=== PATIENT | male | born 1955 | race Caucasian/White ===

== ENCOUNTER 2016-08-25 23:13 | Observation (INO) | payer MEDICARE, OTHER ==
[~2016-08-25] VITALS: Ht 182.9 cm; Wt 98.0 kg
[~2016-08-25 23:13] MED LIST: PENI500T PO; Z.0.NO CURRENT MEDS
[2016-08-25 23:29] VITALS: BP 111/64; PULSE 51; RESP 18; TEMP 98.6; O2SAT 96
[2016-08-25 23:38] VITALS: RESP 18; O2SAT 96
[2016-08-25] MEDS ORDERED: SODIUM CHLORIDE 0.9% FLUSH 5 ML FLUSH IVF PRN (23:45)
[2016-08-25 23:55] LABS: AUTOMATED NEUTROPHIL # 3.9 TH/MM3 (1.8-7.7); BASOPHIL % 0.6 % (0.0-2.0); EOSINOPHIL # 0.1 TH/MM3 (0-0.4); EOSINOPHIL % 1.4 % (0.0-4.0); HEMO FLAGS DIFF FINAL; LYMPH % 29.7 % (9.0-44.0); MEAN CELL VOLUME 90.9 FL (80.0-100.0); MEAN CORPUSCULAR HEMOGLOBIN 31.4 PG (27.0-34.0); MEAN CORPUSCULAR HGB CONC 34.6 % (32.0-36.0); MONO % 10.3 % (0.0-8.0); PLATELET COUNT 208 TH/MM3 (150-450); RED BLOOD COUNT 5.06 MIL/MM3 (4.50-5.90); WHITE BLOOD COUNT 6.8 TH/MM3 (4.0-11.0)
[2016-08-26 00:08] LABS: APTT (PATIENT) 26.6 SEC (24.3-30.1); PROTHROMBIN TIME - PATIENT 10.9 SEC (9.8-11.6)
--- NOTE | 2016-08-26 00:17 | PD ---
HPI Chief Complaint: Chest Pain Time Seen by Provider: 23:36 Travel History International Travel<30 days: No Contact w/Intl Traveler<30days: No Traveled to known affect area: No History of Present Illness HPI 60-year-old male presents to the emergency department by EMS [place] he was noted in the parking lot by bystanders to complain of chest pain. Patient with history of bradycardia. Patient denies previous history of coronary vessel disease. Patient is been seen by core extruder and told that he may need a pacemaker. Patient admits to drinking alcohol heavily today. Patient received sublingual nitroglycerin times one and low-dose aspirin by EMS and patient denies any chest pain at this time. No report upper neck pain shortness of breath sweats nausea vomiting referred neck jaw back shoulder or abdominal pain. Patient unable to identify exacerbating or alleviating factors other than symptoms did improve after EMS administered nitroglycerin. Patient is not taking any erectile dysfunction medications. Patient admits to history of dyslipidemia but denies history of hypertension or tobacco use. Patient does drink alcohol frequently and continues to smoke cigarettes. Currently pain is 0/10 in intensity. PFSH Past Medical History Narrative Medical Bradycardia, prostate cancer, dyslipidemia, tobacco use, alcohol use; nursing notes reviewed Medical History: Unable to Obtain Cancer: Yes (PROSTATE AND LYMPH NODES) Past Surgical History Surgical History: Unable to Obtain Social History Alcohol Use: Yes Tobacco Use: Yes Substance Use: No Allergies-Medications (Allergen,Severity, Reaction): Coded Allergies: No Known Allergies (Unverified , 08/25/16) Reported Meds & Prescriptions Reported Meds & Active Scripts Active Pravachol (Pravastatin) 40 Mg Tab 40 Mg PO DAILY Aspirin EC (Aspirin) 81 Mg Tabdr 81 Mg PO DAILY Review of Systems Except as stated in HPI: all other systems reviewed are Neg General / Constitutional: No: Fever, Chills Eyes: No: Visual changes HENT: No: Headaches Cardiovascular: Positive: Chest Pain or Discomfort, No: Edema Respiratory: No: Shortness of Breath Gastrointestinal: No: Nausea, Vomiting, Abdominal Pain Genitourinary: No: Flank Pain Musculoskeletal: No: Edema, Pain Skin: No Rash Neurologic: Positive: Weakness, No: Dizziness, Syncope, Focal Abnormalities, Coordination Problem Psychiatric: Positive: Anxiety Hematologic/Lymphatic: No: Lymph Node Enlargement Physical Exam Narrative GENERAL: Well-developed well-nourished male in no acute distress no respiratory distress; GCS 15 SKIN: Warm and dry. HEAD: Normocephalic. EYES: No scleral icterus. No injection or drainage. NECK: Supple, trachea midline. No JVD or lymphadenopathy. CARDIOVASCULAR: Regular rate and rhythm without murmurs, gallops, or rubs. RESPIRATORY: Breath sounds equal bilaterally. No accessory muscle use. GASTROINTESTINAL: Abdomen soft, non-tender, nondistended. MUSCULOSKELETAL: No cyanosis, or edema. Bilateral radial and dorsalis pedis pulses 2+ to palpation BACK: Nontender without obvious deformity. No CVA tenderness. Data Data Last Documented VS Vital Signs Date Time Temp Pulse Resp B/P Pulse Ox O2 Delivery O2 Flow Rate FiO2 08/26/16 00:43 96 3 08/26/16 00:42 47 18 130/75 Nasal Cannula 08/25/16 23:29 98.6 Orders Electrocardiogram (08/25/16 23:36) Basic Metabolic Panel (Bmp) (08/25/16 23:36) Ckmb (Isoenzyme) Profile (08/25/16 23:36) Complete Blood Count With Diff (08/25/16 23:36) Magnesium (Mg) (08/25/16 23:36) Prothrombin Time / Inr (Pt) (08/25/16 23:36) Act Partial Throm Time (Ptt) (08/25/16 23:36) Troponin I (08/25/16 23:36) Chest, Single Ap (08/25/16 23:36) Ecg Monitoring (08/25/16 23:36) Bilateral Bp Monitoring (08/25/16 23:36) Iv Access Insert/Monitor (08/25/16 23:36) Oximetry (08/25/16 23:36) Oxygen Administration (08/25/16 23:36) Sodium Chloride 0.9% Flush (Ns Flush) (08/25/16 23:45) Alcohol (Ethanol) (08/25/16 23:36) CKMB (08/25/16 23:45) CKMB% (08/25/16 23:45) Admit Order (Ed Use Only) (08/26/16 ) ^ Saline Lock (08/26/16 01:05) Resp Oxygen Aguilar C Titrat 1-4 L (08/26/16 ) ^ Notify Dr: Other (08/26/16 01:05) Sodium Chloride 0.9% Flush (Ns Flush) (08/26/16 09:00) Sodium Chloride 0.9% Flush (Ns Flush) (08/26/16 01:15) Labs Laboratory Tests Test 08/25/16 23:45 White Blood Count 6.8 TH/MM3 Red Blood Count 5.06 MIL/MM3 Hemoglobin 15.9 GM/DL Hematocrit 46.0 % Mean Corpuscular Volume 90.9 FL Mean Corpuscular Hemoglobin 31.4 PG Mean Corpuscular Hemoglobin 34.6 % Concent Red Cell Distribution Width 14.0 % Platelet Count 208 TH/MM3 Mean Platelet Volume 9.3 FL Neutrophils (%) (Auto) 58.0 % Lymphocytes (%) (Auto) 29.7 % Monocytes (%) (Auto) 10.3 % Eosinophils (%) (Auto) 1.4 % Basophils (%) (Auto) 0.6 % Neutrophils # (Auto) 3.9 TH/MM3 Lymphocytes # (Auto) 2.0 TH/MM3 Monocytes # (Auto) 0.7 TH/MM3 Eosinophils # (Auto) 0.1 TH/MM3 Basophils # (Auto) 0.0 TH/MM3 CBC Comment DIFF FINAL Differential Comment Prothrombin Time 10.9 SEC Prothromb Time International 1.0 RATIO Ratio Activated Partial 26.6 SEC Thromboplast Time Sodium Level 139 MEQ/L Potassium Level 3.8 MEQ/L Chloride Level 104 MEQ/L Carbon Dioxide Level 21.7 MEQ/L Anion Gap 13 MEQ/L Blood Urea Nitrogen 8 MG/DL Creatinine 0.86 MG/DL Estimat Glomerular Filtration 91 ML/MIN Rate Random Glucose 103 MG/DL Calcium Level 8.3 MG/DL Magnesium Level 2.0 MG/DL Total Creatine Kinase 204 U/L Creatine Kinase MB 1.6 NG/ML Troponin I LESS THAN 0.02 NG/ML Ethyl Alcohol Level 303 MG/DL [facility] Medical Decision Making Medical Screen Exam Complete: Yes Emergency Medical Condition: Yes Medical Record Reviewed: Yes Interpretation(s) EKG sinus bradycardia no acute ST elevation or injury pattern change noted Last Impressions Chest X-Ray 08/25/16 5753 Signed Impressions: Service Date/Time: Friday, August 26, 2016 00:06 - CONCLUSION: Minimal linear scarring versus atelectasis left lung base. Anthony Camarena MD CBC & BMP Diagram 2/24/17 23:45 Vital Signs Date Time Temp Pulse Resp B/P Pulse Ox O2 Delivery O2 Flow Rate FiO2 08/26/16 00:43 96 3 08/26/16 00:42 47 18 130/75 96 Nasal Cannula 3 08/25/16 23:38 18 96 Nasal Cannula 2 08/25/16 23:35 50 18 96 Room Air 08/25/16 23:29 98.6 51 18 111/64 96 Differential Diagnosis Chest pain, ACS, myocardial infarction, arrhythmia, electronic disturbance, alcohol intoxication Narrative Course Patient placed on monitoring manager identified to be bradycardic with out any acute ST elevation or injury pattern change right EKG patient is presently asymptomatic with no chest pain. Patient has received aspirin. Lab values pending patient resting comfortably consistent with history of heavy alcohol ingestion but readily arousable to voice and cooperative to questioning patient continues to deny any chest pain. Serum alcohol identified to be elevated at 303 Patient's case discussed with [facility] physician for admission Physician Communication Physician Communication discussed with Dr Sanchez --obs to CDU Diagnosis Primary Impression: Chest pain Qualified Code: R07.2 - Precordial pain Additional Impressions: Bradycardia Alcohol intoxication Qualified Code: F10.120 - Alcohol intoxication, uncomplicated Admitting Information Admitting Physician Requests: Observation Scripts Pravastatin (Pravachol)40 Mg Tab40 Mg PO DAILY #30 TAB Prov:Brandy Long PA-C 08/26/[address] (Aspirin EC)81 Mg Tabdr81 Mg PO DAILY #30 TAB Prov:Brandy Long PA-C 08/26/16 Jeanne Cassidy MD Aug 26, 2016 00:17
[2016-08-26 00:19] LABS: ANION GAP 13 MEQ/L (5-15)
[2016-08-26 00:24] LABS: BICARBONATE 21.7 MEQ/L (21.0-32.0); BLOOD UREA NITROGEN 8 MG/DL (7-18); CHLORIDE 104 MEQ/L (98-107); CREATINE KINASE 204 U/L (39-308); GLOMERULAR FILTRATION RATE 91 ML/MIN (>89); POTASSIUM 3.8 MEQ/L (3.5-5.1); SODIUM (NA) 139 MEQ/L (136-145)
[2016-08-26 00:38] LABS: CKMB 1.6 NG/ML (0.5-3.6)
--- NOTE | 2016-08-26 00:41 | RADRPT ---
EXAM DATE/TIME: 08/26/2016 00:06 [facility] COMPARISON: No previous studies available for comparison. INDICATIONS : Shortness of breath. MEDICAL HISTORY : None. SURGICAL HISTORY : None. ENCOUNTER: Initial ACUITY: 1 day PAIN SCORE: 0/10 LOCATION: Bilateral chest FINDINGS: Cardiomegaly. Left basilar scarring versus atelectasis. No consolidation or effusion. Osseous structu res are intact. CONCLUSION: Minimal linear scarring versus atelectasis left lung base. Anthony Camarena MD on August 26, 2016 at 0:39 Board Certified Radiologist. This report was verified electronically.
[2016-08-26 00:42] VITALS: BP 130/75; PULSE 47; RESP 18; O2SAT 96
[2016-08-26] MEDS ORDERED: SODIUM CHLORIDE 0.9% FLUSH 5 ML FLUSH IVF PRN (01:15)
[2016-08-26 01:16] VITALS: O2SAT 96
[2016-08-26] MEDS ORDERED: FLUMAZENIL 0.5 MG/5 ML VIAL IV PUSH PRN (01:30)
[2016-08-26] MEDS ORDERED: LORazepam 2 MG/ML VIAL IV PUSH PRN ×4 (01:30)
[2016-08-26] MEDS ORDERED: ACETAMINOPHEN 325 MG TAB PO PRN (01:30)
[2016-08-26] MEDS ORDERED: ACETAMINOPHEN/HYDROcodone 325 MG/5 MG TAB PO PRN (01:30)
[2016-08-26] MEDS ORDERED: LORazepam 1 MG TAB PO PRN (01:30)
[2016-08-26] MEDS ORDERED: LORazepam 2 MG TAB PO PRN (01:30)
[2016-08-26] MEDS ORDERED: SODIUM CHLORIDE 0.9% FLUSH 5 ML FLUSH FLUSH PRN (01:30)
[2016-08-26] MEDS ORDERED: ONDANSETRON HCL 4 MG/2 ML VIAL IVP PRN (01:30)
[2016-08-26] MEDS ORDERED: HALOPERIDOL LACTATE 5 MG/ML AMP IM PRN (01:30)
[2016-08-26] MEDS ORDERED: MORPHINE SULFATE 4 MG/ML INJ IV PRN (01:30)
[2016-08-26] MEDS ORDERED: BISACODYL 10 MG SUPP PR PRN (01:30)
[2016-08-26] MEDS ORDERED: MULTIVITAMIN INJ 10 ML, FOLIC ACID INJ 1 MG in SODIUM CHLORID 0.9% 500 ML INJ 500 ML IV SCH (02:00)
[2016-08-26] MEDS ORDERED: THIAMINE INJ 100 MG in SODIUM CHLORIDE 0.9% INJ 100 ML IV SCH (02:00)
--- NOTE | 2016-08-26 02:17 | HHI.HP ---
[facility] Service [facility] Primary Care Physician Unknown Admission Diagnosis chest pain; bradycardia; alcohol intoxication Diagnoses: (1) Chest pain Diagnosis: Principal (2) Bradycardia Diagnosis: Principal (3) Alcohol intoxication Diagnosis: Principal Travel History International Travel<30 Days: No Contact w/Intl Traveler <30 Da: No Traveled to Known Affected Are: No History of Present Illness This is a 60-year-old male with PMH of Alcohol and Tobacco Use who was brought to the ER secondary to complaints of SOB and chest pain while at the races. Noted by bystander to be diaphoretic and EMS called. Pt acutely intoxicated on arrival and minimally cooperative with exam/questions, Alcohol 303. Denies any complaints at this time, states chest pain resolved. Notes h/o stress test in January 2016 which was reportedly normal. On arrival, BP 111/64, HR 51, O2 sat 96% on RA, Afebrile. Reports h/o bradycardia w/ mention of Pacemaker placement , however no plan per pt. Review of Systems ROS: 14 point review of systems otherwise negative. Past Family Social History Past Medical History PMH: Alcohol and Tobacco Use Past Surgical History PAST SURGICAL HISTORY: Unknown Allergies: Coded Allergies: No Known Allergies (Unverified , 08/25/16) Family History PAST FAMILY HISTORY: Reviewed. No h/o DM or CAD Social History PAST SOCIAL HISTORY: Positive for alcohol and tobacco use, unable to quantify. Reportedly negative for drugs. Physical Exam Vital Signs Vital Signs Date Time Temp Pulse Resp B/P Pulse Ox O2 Delivery O2 Flow Rate FiO2 08/26/16 01:16 96 Nasal Cannula 3.00 08/26/16 00:43 96 3 08/26/16 00:42 47 18 130/75 96 Nasal Cannula 3 08/25/16 23:38 18 96 Nasal Cannula 2 08/25/16 23:35 50 18 96 Room Air 08/25/16 23:29 98.6 51 18 111/64 96 Physical Exam PE: GENERAL: Middle-aged male in no acute distress, intoxicated, minimally cooperative w/ exams, answers few questions. HEENT: PERRLA, EOMI. No scleral icterus or conjunctival pallor. No lid lag or facial droop. CARDIOVASCULAR: Regular rate and rhythm. No obvious murmurs to auscultation. No chest tenderness to palpation. RESPIRATORY: No obvious rhonchi or wheezing. Clear to auscultation. Breath sounds equal bilaterally. GASTROINTESTINAL: Abdomen soft, non-tender, nondistended. BS normal. MUSCULOSKELETAL: Extremities without clubbing, cyanosis, or edema. No obvious deformities. NEUROLOGICAL: Intoxicated, sleeping, rouses easily but minimally cooperative. No focal neurologic deficits. Moving both upper and lower extremities spontaneously. Laboratory Laboratory Tests Test 08/25/16 23:45 White Blood Count 6.8 Red Blood Count 5.06 Hemoglobin 15.9 Hematocrit 46.0 Mean Corpuscular Volume 90.9 Mean Corpuscular Hemoglobin 31.4 Mean Corpuscular Hemoglobin 34.6 Concent Red Cell Distribution Width 14.0 Platelet Count 208 Mean Platelet Volume 9.3 Neutrophils (%) (Auto) 58.0 Lymphocytes (%) (Auto) 29.7 Monocytes (%) (Auto) 10.3 Eosinophils (%) (Auto) 1.4 Basophils (%) (Auto) 0.6 Neutrophils # (Auto) 3.9 Lymphocytes # (Auto) 2.0 Monocytes # (Auto) 0.7 Eosinophils # (Auto) 0.1 Basophils # (Auto) 0.0 CBC Comment DIFF FINAL Differential Comment Prothrombin Time 10.9 Prothromb Time International 1.0 Ratio Activated Partial 26.6 Thromboplast Time Sodium Level 139 Potassium Level 3.8 Chloride Level 104 Carbon Dioxide Level 21.7 Anion Gap 13 Blood Urea Nitrogen 8 Creatinine 0.86 Estimat Glomerular Filtration 91 Rate Random Glucose 103 Calcium Level 8.3 Magnesium Level 2.0 Total Creatine Kinase 204 Creatine Kinase MB 1.6 Troponin I LESS THAN 0.02 Ethyl Alcohol Level 303 Result Diagram: 08/25/16 2345 08/25/16 2345 Assessment and Plan Problem List: (1) Chest pain ICD Code: R07.9 Status: Acute (2) Bradycardia ICD Code: R00.1 Status: Acute (3) Alcohol intoxication ICD Code: F10.129 Status: Acute Assessment and Plan A/P: 1. Chest Pain: c/o acute onset of chest pain/SOB while at the races, noted by bystander to be diaphoretic, currently chest pain free. Initial trop negative, EKG w/ no acute changes. Per pt, Stress Test 01/2016 normal, no records available. Admit to Observation, telemetry, check serial cardiac enzymes. No B -sofya in light of bradycardia. Start Statin, check lipid profile, TSH. 2. Bradycardia: HR 40-50's while in ER, seemingly asymptomatic. Reports h/o same in the past w/ mention of Pacemaker Placement, however no plan at this time. Will monitor. Check Echo. 3. Alcohol Intoxication: Drinking heavily all day while at the races. Alcohol 309. Seizure Precautions, CIWA, MVT/Thiamine/Folate replacement. 4. DVT Prophylaxis: SCD/Teds. 5. Social work for d/c planning as needed. 6. Case discussed w/ ER physician at length. Problem Qualifiers (1) Chest pain: Qualified Code: R07.2 - Precordial pain (2) Alcohol intoxication: Qualified Code: F10.120 - Alcohol intoxication, uncomplicated Donna Sanchez MD Aug 26, 2016 02:17
[2016-08-26 06:23] VITALS: BP 136/76; PULSE 46; RESP 14; TEMP 97.6
[2016-08-26 07:20] LABS: HDL CHOLESTEROL 85.8 MG/DL (40.0-60.0); LDL CHOLESTEROL 109 MG/DL (0-99)
[2016-08-26 07:46] VITALS: BP 107/59; PULSE 50; RESP 14; TEMP 98; O2SAT 95
[2016-08-26 08:00] VITALS: PULSE 47
[2016-08-26] MEDS ORDERED: SODIUM CHLORIDE 0.9% FLUSH 5 ML FLUSH IVF SCH (09:00)
[2016-08-26] MEDS ORDERED: PRAVASTATIN SOD 40 MG TAB PO SCH (09:00)
[2016-08-26] MEDS ORDERED: SODIUM CHLORIDE 0.9% FLUSH 5 ML FLUSH FLUSH SCH (09:00)
--- NOTE | 2016-08-26 09:13 | HHI.PR ---
Subjective Remarks Follow-up for chest pain. The patient is sleeping upon my arrival, drowsy, but does awaken to voice. Keeps eyes closed throughout conversation initially. The patient reports yesterday after drinking multiple beers he developed heavy chest pressure, felt like someone was sitting on his chest, patient has difficulty recalling more detail as he was intoxicated at the time. He states they gave him 2 tablets then the pain completely went away. This morning he still has some dull pains in the center of his chest, he states it's worse with just me talking to him about it, and says it's probably because he's anxious and stressed. He does not have his cell phone. [place], with 6 other people who have no clue where he is at. He is trying to get ahold of his back home. The patient reports history of walking treadmill stress test last year around January 2016 which was reportedly unremarkable. The patient is a smoker. He has no other cardiac history. He has never had a nuclear stress test. Objective Vitals Vital Signs Date Time Temp Pulse Resp B/P Pulse Ox O2 Delivery O2 Flow Rate FiO2 08/26/16 07:46 98.0 50 14 107/59 95 08/26/16 06:23 97.6 46 14 136/76 08/26/16 01:16 96 Nasal Cannula 3.00 08/26/16 00:43 96 3 08/26/16 00:42 47 18 130/75 96 Nasal Cannula 3 08/25/16 23:38 18 96 Nasal Cannula 2 08/25/16 23:35 50 18 96 Room Air 08/25/16 23:29 98.6 51 18 111/64 96 Result Diagram: 08/25/16 2345 08/25/16 2345 Imaging Last Impressions Chest X-Ray 08/25/16 2336 Signed Impressions: Service Date/Time: Friday, August 26, 2016 00:06 - CONCLUSION: Minimal linear scarring versus atelectasis left lung base. Anthony Camarena MD Objective Remarks GENERAL: Well-nourished, well-developed milddle aged male patient in [facility]. SKIN: Warm and dry. No rash. Sunburned skin. HEAD: Normocephalic. Atraumatic. EYES: Pupils equal and round. No scleral icterus. No injection or drainage. ENT: No nasal bleeding or discharge. Mucous membranes pink and moist. NECK: Supple. Trachea midline. CARDIOVASCULAR: Regular rate and rhythm. S1, S2 noted. No murmur appreciated. RESPIRATORY: No accessory muscle use. Clear to auscultation. Breath sounds equal bilaterally. GASTROINTESTINAL: Abdomen soft, non-tender, nondistended. Normoactive bowel sounds x4. MUSCULOSKELETAL: No obvious deformities. Extremities without clubbing, cyanosis , or edema. NEUROLOGICAL: Awake and alert. No obvious cranial nerve deficits. Motor grossly within normal limits. Normal speech. PSYCHIATRIC: Anxious mood; insight and judgment normal. Medications and IVs Current Medications Medications (Trade) Dose Ordered Sig/Nereida Route Start Time Stop Time Status Last Admin (NS Flush) 2 ml BID IVF 08/26/16 09:00 IV Flush 2 ml 2 ml UNSCH PRN IVF 08/26/16 01:15 Multivitamins 10 ml/Folic Acid 1 mg/Sodium Chloride 510.2 ml @ 125 mls/hr Q24H IV 08/26/16 02:00 08/31/16 01:59 08/26/16 02:27 (Thiamine Inj/NS Inj) 101 ml @ 100 mls/hr Q24H IV 08/26/16 02:00 08/29/16 01:59 08/26/16 02:27 (Vitamin B1) 100 mg DAILY PO 08/29/16 09:00 (Romazicon Inj) 0.2 mg Q1M PRN IV PUSH 08/26/16 01:30 (Ativan) 1 mg Q4H PRN PO 08/26/16 01:30 (Ativan Inj) 1 mg Q4H PRN IV PUSH 08/26/16 01:30 (Ativan) 2 mg Q2H PRN PO 08/26/16 01:30 (Ativan Inj) 2 mg Q2H PRN IV PUSH 08/26/16 01:30 (Ativan Inj) 2 mg Q1H PRN IV PUSH 08/26/16 01:30 (Ativan Inj) 2 mg Q15M PRN IV PUSH 08/26/16 01:30 (Haldol Inj) 2 mg Q15M PRN IM 08/26/16 01:30 (NS Flush) 2 ml UNSCH PRN FLUSH 08/26/16 01:30 (NS Flush) 2 ml BID FLUSH 08/26/16 09:00 08/26/16 08:05 (Zofran Inj) 4 mg Q6H PRN IVP 08/26/16 01:30 (Dulcolax Supp) 10 mg DAILY PRN OH 08/26/16 01:30 (Tylenol) 650 mg Q6H PRN PO 08/26/16 01:30 ([place] 5-325 Mg) 1 tab Q4H PRN PO 08/26/16 01:30 (Morphine Inj) 2 mg Q3H PRN IV 08/26/16 01:30 (Pravachol) 40 mg DAILY PO 08/26/16 09:00 08/26/16 08:05 A/P Problem List: (1) Chest pain ICD Code: R07.9 Status: Acute (2) Bradycardia ICD Code: R00.1 Status: Acute (3) Alcohol intoxication ICD Code: F10.129 Status: Acute Assessment and Plan 60-year-old male with PMH of Alcohol and Tobacco Use who was brought to the ER secondary to complaints of SOB and chest pain while at the races. Chest Pain: c/o acute onset of chest pain/SOB while at the races, noted by bystander to be diaphoretic, currently chest pain free. Troponins negative x2, EKG w/ no acute changes. Per pt, Treadmill Stress Test 01/2016 normal, no records available. Monitor on telemetry. No B-sofya in light of bradycardia. Start Aspirin and Statin, lipid profile with elevated cholesterol and LDL. TSH wnl. Check nuclear stress test today, if negative, will discharge home. Bradycardia: HR 40-50's while in ER, asymptomatic. Reports h/o same in the past w/ mention of Pacemaker Placement, however no plan at this time. Will monitor. Observed telemetry while patient ambulating, HR increased to 60-70s appropriately. Outpatient f/up. Alcohol Intoxication: Drinking heavily all day while at the races. Alcohol 309. Seizure Precautions, CIWA, MVT/Thiamine/Folate replacement. DVT Prophylaxis: SCD/Teds. Discussed with Dr. Santiago. Discharge Planning Nuclear stress test was unremarkable. Will discharge home. Discussed with Dr. Santiago. Discharge patient to home Condition on discharge: Improved Heart healthy Diet as tolerated Ad Danuta activity Rx written: Aspirin 81 mg daily, Pravachol 40 mg daily Follow-up with primary care physician within one week Attending Statement The exam, history, and the medical decision-making described in the above note were completed with the assistance of the mid-level provider. I reviewed and agree with the findings presented. I attest that I had a [id number] encounter with the patient on the same day, and personally performed and documented my assessment and findings in the medical record. Problem Qualifiers (1) Chest pain: Qualified Code: R07.2 - Precordial pain (2) Alcohol intoxication: Qualified Code: F10.120 - Alcohol intoxication, uncomplicated Brandy Long PA-C Aug 26, 2016 09:13 Rusty Santiago MD Aug 28, 2016 02:55
[2016-08-26] MEDS ORDERED: ASPIRIN EC 81 MG TABEC PO SCH (09:15)
[2016-08-26] MEDS ORDERED: REGADENOSON INJ 0.4 MG/5 ML SYR ONE (10:04)
[2016-08-26 11:45] VITALS: BP 127/74; PULSE 62; RESP 22; TEMP 97.7; O2SAT 98
--- NOTE | 2016-08-26 12:51 | RADRPT ---
EXAM DATE/TIME: 08/26/2016 09:47 [facility] COMPARISON: No previous studies available for comparison. INDICATIONS : Substernal chest pain with diaphoresis, dizziness and dyspnea. Angina. DOSE: 25.4 mCi Tc99m Myoview at stress. 8.5 mCi Tc99m Myoview at rest. 0.4 mg Lexiscan STRESS SYMPTOMS: Dyspnea. EJECTION FRACTION: 68% MEDICAL HISTORY : Carcinoma, prostate. SURGICAL HISTORY : Knee and ankle surgery. ENCOUNTER: Initial ACUITY: 1 day PAIN SCALE: 6/10 LOCATION: Substernal chest TECHNIQUE: The patient underwent pharmacologic stress with infusion of prescribed dose. Continuous ECG tracing was monitored during stress. Gated SPECT imaging was performed after stress and conventional SPECT i maging was performed at rest. The examination was performed on a SPECT/CT scanner, both attenuation and non-corrected datasets were reviewed. FINDINGS: DISTRIBUTION: The maximum perfused segment at stress is in the septal wall. PERFUSION STUDY: The pattern of perfusion at stress is within normal limits. GATED STUDY: There is intact wall motion and thickening without hypokinetic or dyskinetic segments. CONCLUSION: No reversible perfusion defects. No focal wall motion abnormalities. Ejection fraction within normal limits. RISK CATEGORY: 1- Low Risk Aleksandar Lin MD on August 26, 2016 at 12:48 Board Certified Radiologist. This report was verified electronically.
--- NOTE | 2016-08-26 14:39 | EKG ---
Date Performed: 08/25/2016 Time Performed: 23:30:48 PTAGE: 60 years EKG: SINUS BRADYCARDIA BORDERLINE ECG NO PREVIOUS TRACING DOCTOR: Tae Pinto Interpretating Date/Time 08/26/2016 14:36:57
[2016-08-26] MEDS ORDERED: ASPI81TA11 PO (15:15)
[2016-08-26] MEDS ORDERED: PRAV40TA PO (15:15)
--- NOTE | 2016-08-26 15:16 | HHI.DCPOC ---
Discharge Care Plan Diagnosis: (1) Chest pain (2) Alcohol intoxication Your Health Problems Are: Chest Pain Goals to Promote Your Health * To prevent worsening of your condition and complications * To maintain your health at the optimal level Directions to Meet Your Goals Take your medications as prescribed Follow your dietary instruction Follow activity as directed Keep your appointments as scheduled Take your immunizations and boosters as scheduled If your symptoms worsen call your PCP, if no PCP go to Urgent Care Center or Emergency Room Smoking is Dangerous to Your Health. Avoid second hand smoke Call the 24-hour hour crisis hotline for domestic abuse at Brandy Long PA-C Aug 26, 2016 15:16
[2016-08-29] MEDS ORDERED: THIAMINE HCL 100 MG TAB PO SCH (09:00)
== END 2016-08-26 16:06 | disposition home or self-care (01) ==
LOC: NEPC 23:13 → NEDA 08-26 01:07 → NEPGCP 08-26 05:21
PROVIDERS: ADMIT Internal Medicine; ATTEND Internal Medicine
DX: R07.2 Precordial pain (principal); R00.1 Bradycardia, unspecified; F10.120 Alcohol abuse with intoxication, uncomplicated; E78.5 Hyperlipidemia, unspecified; F17.210 Nicotine dependence, cigarettes, uncomplicated; R61 Generalized hyperhidrosis; Y90.8 Blood alcohol level of 240 mg/100 ml or more; R94.31 Abnormal electrocardiogram [ECG] [EKG]
CPT/HCPCS: 71010; 78452; 80048; 80061; 80320; 82550; 82552; 82948; 83735; 84443; 84484; 85025; 85610; 85730; 93005; 93017; 99285; A9502; G0378; J2785; J3411; J7040